=== PATIENT | female | born 1985 | race Caucasian/White ===

== ENCOUNTER 2017-09-01 18:36 | Emergency (ER) | payer BC, MEDICARE ==
[~2017-09-01] VITALS: Ht 160 cm; Wt 83.2 kg
[2017-09-01 18:55] VITALS: BP 162/72; Ht 160 cm; Wt 83.2 kg
[2017-09-01] MEDS ORDERED: SUMATRIPTAN SUC25 MG PO (18:56)
[2017-09-01] MEDS ORDERED: MAGNESIUM (18:57)
[2017-09-01] MEDS ORDERED: CYCLOBENZAPRINE5 MG PO (18:57)
[2017-09-01] MEDS ORDERED: SYNTHROID25 MCG PO (18:57)
[2017-09-01] MEDS ORDERED: MAXALT10 MG PO (18:57)
[2017-09-01] MEDS ORDERED: PRENATAL COMPLE1 TAB (18:58)
[2017-09-01] MEDS ORDERED: VITAMIN D31000 UNI2 PO (18:58)
[2017-09-01 20:11] LABS: BASOPHILS 0.1 % (0-2); EOSINOPHILS 0.6 % (0-7); HEMATOCRIT 32.9 % (36.0-48.0); HEMOGLOBIN 11.5 g/dL (12-16); LYMPHOCYTES 12.7 % (15-50); MCH 29.3 pg (26.0-34.0); MCV 83.9 fL (80.0-100.0); MEAN PLATELET VOLUME 9.5 fL (7.4-10.4); MONOCYTES 5.2 % (2-11); NEUTROPHILS 80.4 % (40-80); PLATELET COUNT 218 10x3/uL (130-400); RBC 3.92 10x6/uL (4.00-5.40); RDW 13.3 % (11.5-14.5); WBC 9.4 10x3/uL (4.8-10.8)
[2017-09-01 20:23] LABS: ALBUMIN 3.4 g/dL (3.4-5.0); ALKALINE PHOSPHATASE 52 U/L (46-116); ALT (SGPT) 28 U/L (10-68); BILIRUBIN - TOTAL 0.56 mg/dL (0.2-1.3); CALC OSMOLALITY 268 mosm/kg (275-300); CALCIUM 9.9 mg/dL (8.5-10.1); CARBON DIOXIDE 25.2 mmol/L (21.0-32.0); CHLORIDE - SERUM 101 mmol/L (98-107); CREATININE - SERUM 0.6 mg/dL (0.6-1.3); GLUCOSE 113 mg/dL (74-106); PROTEIN - SERUM 7.9 g/dL (6.4-8.2); SODIUM 135 mmol/L (136-145); UREA NITROGEN 6 mg/dL (7-18); eGFR NON AFRICAN AMERICAN > 90 mL/min (90-120)
[2017-09-01 20:45] LABS: HCG - QUANTITATIVE (MATERNAL) 46781 mIU/mL
== END 2017-09-01 21:33 | disposition left against medical advice (07) ==
LOC: D.ER 18:36
PROVIDERS: Family Medicine
DX: O26.892 Other specified pregnancy related conditions, second trimester (principal); Z3A.15 15 weeks gestation of pregnancy; R51 Headache